=== PATIENT | female | born 1960 | race Native Hawaiian/Other Pacific Islander ===

== ENCOUNTER 2022-12-21 17:22 | Outpatient (CLI) | payer BC ==
--- NOTE | 2022-12-22 11:35 | XRAY Report ---
PROCEDURE: Chest 2 View X-Ray INDICATIONS: History of latent TB TECHNIQUE: 2 views of the chest were acquired. COMPARISON: None. FINDINGS: Surgical changes and devices: None. Lungs and pleura: No pleural effusions or pneumothorax. Lungs are clear. Mediastinum: Mediastinal contours appear normal. Heart size is normal. Bones and chest wall: No suspicious bony lesions. Overlying soft tissues appear unremarkable. Abdomen: Unremarkable. IMPRESSION: 1.No acute cardiopulmonary process. 2.No radiographic evidence of TB. Reviewed by: Elodia Hair MD on 12/22/2022 11:34 AM PDT Approved by: Elodia Hair MD on 12/22/2022 11:34 AM PDT Station ID: [id number]
== END 2022-12-21 17:23 | disposition home or self-care (01) ==
LOC: DI 17:22
PROVIDERS: ATTEND Physician Assistant
DX: Z86.15 Personal history of latent tuberculosis infection (principal)